=== PATIENT | male | born 1980 ===

== ENCOUNTER 2020-12-25 21:29 | Emergency (ER) | payer BC ==
[2020-12-25] MEDS ORDERED: Ketorolac 15 MG/ML SDV IM ONE (22:06)
[2020-12-25] MEDS ORDERED: Morphine 4 MG/ML Syringe IVPUSH ONE (22:18)
[2020-12-25 22:52] LABS: BLOOD UREA NITROGEN,BUN 19 mg/dL (7.0-18.0); CARBON DIOXIDE,CO2 26.8 mmol/L (21.0-32.0); CHLORIDE,CL 104 mmol/L (98-107); GLUCOSE RANDOM 115 mg/dL (74-106); POTASSIUM,K 4.2 mmol/L (3.5-5.1); SODIUM,NA 142 mmol/L (136-148)
[2020-12-25] MEDS ORDERED: Iopamidol 755 Mg/ML 100 ML Bottle IVPUSH ONE (23:15)
--- NOTE | 2020-12-26 00:58 | CT ---
INDICATION: Bloody stools. Mid back pain. CT ABDOMEN AND PELVIS WITH CONTRAST TECHNIQUE: Multidetector CT imaging was performed through the abdomen and pelvis following intravenous contrast administration using 100 mL Isovue 370. a delay in initiation of scanning occurred due to scanner malfunction. Coronal and sagittal reconstructions were generated. COMPARISON: None. FINDINGS: Lower chest: Lung bases are clear. Liver: Within normal limits. Gallbladder and bile ducts: No gallbladder wall thickening or calcified gallstones. No biliary dilation identified. Pancreas: Unremarkable. Spleen: Normal. Adrenals: No nodules or masses. Kidneys, ureters, and urinary bladder: No renal masses or hydronephrosis. No bladder mass or definite wall thickening. Gastrointestinal tract: Normal caliber small bowel without wall thickening or obstruction. The appendix is normal. There are multiple sigmoid colon diverticula without evidence of diverticulitis. No generalized colon wall thickening is seen to suggest colitis. Vascular structures: Normal for age. Peritoneum: No free air, abscess, or significant free fluid. Lymph nodes: No pathologically enlarged nodes identified. Reproductive organs: No pelvic masses. Bones: Minor spinal degenerative changes. IMPRESSION: 1. No acute abnormality identified. No definite cause for the patient`s symptoms is demonstrated. 2. Sigmoid colon diverticulosis without evidence of diverticulitis. SONA YEBOAH MD [facility] Dictated by Vern Yeboah MD @ 12/26/2020 12:56:55 AM Please note that all CT scans at this facility use dose modulation, iterative reconstruction, and/or weight-based dosing when appropriate to reduce radiation dose to as low as reasonably achievable. Dictated by: Vern Yeboah MD @ 12/26/2020 00:57:11 (Electronically Signed)
--- NOTE | 2020-12-26 01:00 | CT ---
INDICATION: Mid back pain. CT LUMBAR SPINE WITHOUT CONTRAST TECHNIQUE: Multidetector axial CT imaging was performed through the lumbar spine, without contrast. Sagittal and coronal reconstructions were generated. FINDINGS: No acute fractures are identified. Disc spaces appear preserved. Osseous alignment is within normal limits and no subluxation is seen. Mild degenerative change is seen at the L4-5 facet joints bilaterally. Paravertebral soft tissues are unremarkable. IMPRESSION: 1. No fracture, subluxation, or other acute finding identified. 2. Mild degenerative change at the L4-5 facet joints. SONA YEBOAH MD [facility] Please note that all CT scans at this facility use dose modulation, iterative reconstruction, and/or weight-based dosing when appropriate to reduce radiation dose to as low as reasonably achievable. Dictated by: Vern Yeboah MD @ 12/26/2020 00:59:09 (Electronically Signed)
[2020-12-26] MEDS ORDERED: Lidocaine 5% 700 MG Patch TRDERM ONE (01:45)
--- NOTE | 2020-12-26 01:57 | EDM.PDOC ---
ED HPI GENERAL MEDICAL PROBLEM - General Chief Complaint: Back Pain or Injury Stated Complaint: BACK PAIN, BLOOD IN STOOL Time Seen by Provider: 12/25/20 21:57 - History of Present Illness INITIAL COMMENTS - FREE TEXT/NARRATIVE: CHIEF COMPLAINT(S): Back pain HISTORY OF PRESENT ILLNESS: This is a 40-year-old man without any significant past medical history who presents to the emergency department with a chief complaint of back pain. The patient states that the last week he has been experiencing back pain in the lower part of his back. He denies any bowel incontinence, urinary incontinence, saddle anesthesia, fever, rash, IV drug use or any immunocompromise state. He states that the pain is achy and rates it as a 7 out of 10. He denies any exacerbating factor as he was working when this happened. He states that he does not usually lift things. He states that he was at the chiropractor however things seem to have worsened. He states that he has taken Aleve but that was only a couple of days ago. He states that in addition to this he did have some blood in his stool which was bright red. He denies any abdominal pain. Pain does not radiate and he does not have any numbness or tingling of his extremities. REVIEW OF SYSTEMS: Constitutional: Denies fever, chills. Eyes: Denies eye pain Ears, Nose, Mouth, & Throat: Denies earache Cardiovascular: Denies chest pain Respiratory: Denies shortness of breath Gastrointestinal: Positive for bright red blood in stool. Denies Nausea, vomiting, diarrhea, hematochezia. Genitourinary: Denies hematuria Skin:Denies a rash MSK: Positive for back pain Neurological: Denies blurred vision, numbness, , We did Psychiatric: Denies depression PAST MEDICAL HISTORY: As per history of present illness and as reviewed below otherwise noncontributory. SURGICAL HISTORY: As per history of present illness and as reviewed below otherwise noncontributory. SOCIAL HISTORY: As per history of present illness and as reviewed below otherwise noncontributory. FAMILY HISTORY: As per history of present illness and as reviewed below otherwise noncontributory. EXAMINATION OF ORGAN SYSTEMS/BODY AREAS: Constitutional: Blood pressure was 04[birth year]19/1979, heart rate 97, stores with an oxygen saturation of 95% on room air. Temperature 36.5 General: Well-appearing man who is in no acute distress Psychiatric: Appropriate mood and affect. Eyes: No scleral icterus or conjunctival erythema ENMT: Moist mucous membranes. No pharyngeal erythema Cardiovascular: Regular, rate, and rhythm. No gallops, murmurs, or rubs. Bilateral upper extremity pulses symmetric and intact. No peripheral edema. No JVD. Respiratory: Lungs clear to auscultation bilaterally. No wheezes, rales, or rhonchi. Gastrointestinal: Soft, non-tender, non-distended. Normoactive bowel sounds rec tobias exam performed with RN elevator runner in presence. There is a hemorrhoid along the 6:00 region near the anus without any bleeding which appears flat. Stool was brown but guaiac positive. rectal tone appropriate. No saddle anesthesia genitourinary: No suprapubic tenderness Musculoskeletal: Normal range of motion. Negative straight leg test. There is midline and lumbar tenderness. No overlying skin changes. Skin: No lesions or abrasions. Neurological: AOx4. Stregth 5/5 in bilateral upper and lower extremity. Sensation is intact bilaterally in upper and lower extremity. Gait appears norm al. MEDICAL DECISION MAKING AND COURSE IN THE ED WITH INTERPRETATION/REVIEW OF DIAGNOSTIC STUDIES: This is a 40-year-old man with past medical history who presents to the emergency department with 3 days of midline and paralumbar back pain who had a little. Given the back pain we will obtain a lumbar spine without contrast to evaluate any abnormality. The patient is low risk and does not have any red flag symptoms at this time. We will obtain labs including CBC CMP, type and screen and coags. Will obtain CT abdomen pelvis given the blood in the stool. I do believe the blood is more likely from the hemorrhoid and unlikely an acute GI bleed given that the patient is low risk. We will provide the patient with a lidocaine patch Toradol IM and 4 mg of IV morphine for pain relief. Laboratory: CBC reveals a leukocytosis of 13.33 otherwise unremarkable. INR is normal. CMP is normal. Covid is negative. The radiological images were viewed by myself along with reading the report from the radiologist. CT abdomen pelvis with contrast reveals no acute abnormalities. There is sigmoid diverticulosis without evidence of diverticulitis. CT lumbar spine does not reveal any acute fracture or subluxation. There is mild degenerative changes at the L4-5 facet joints. After labs and imaging I did discuss the results with the patient. At this time I do believe his back pain is likely musculoskeletal in nature and discussed treatment options with the patient. I discussed strict return precautions and also discussed treatment for his hemorrhoid. If he has any worsening of his symptoms he is to return. He did express understanding and was amenable to discharge at this time. DISPOSITION: The patient was discharged home in stable condition. The patient will follow up with primary care physician in 3 to 5 days CONDITION: Fair PROCEDURES: None FINAL IMPRESSION(S)/DIAGNOSES: 1. Acute lumbar strain 2. Acute bright red blood per rectum likely secondary to hemorrhoidal bleeding José Miguel Broussard M.D. Lower back Pain Score (Numeric/FACES): 7 - Related Data Allergies Allergy/AdvReac Type Severity Reaction Status Date / Time No Known Allergies Allergy Verified 12/25/20 21:52 Home Meds: Home Meds Lidocaine 5% [Lidoderm 5%] 1 patch TOP DAILY #7 patch 12/26/20 [Rx] methocarbamoL [Methocarbamol] 1,500 mg PO TID #42 tablet 12/26/20 [Rx] Past Medical History HEENT History: Reports: None Cardiovascular History: Reports: None Respiratory History: Reports: None Gastrointestinal History: Reports: None Genitourinary History: Reports: None Musculoskeletal History: Reports: Fracture, Other (See Below) Other Musculoskeletal History: fx of L wrist Neurological History: Reports: None Psychiatric History: Reports: None Endocrine/Metabolic History: Reports: Obesity/BMI 30+ Hematologic History: Reports: None Immunologic History: Reports: None Oncologic (Cancer) History: Reports: None Dermatologic History: Reports: None - Infectious Disease History Infectious Disease History: Reports: None - Past Surgical History Head Surgeries/Procedures: Reports: None Endocrine Surgical History: Reports: None Musculoskeletal Surgical History: Reports: None Social & Family History - Family History Family Medical History: No Pertinent Family History - Tobacco Use Tobacco Use Status *Q: Current Every Day Tobacco User Years of Tobacco use: 23 Packs/Tins Daily: 1 - Caffeine Use Caffeine Use: Reports: Coffee, Energy Drinks, Soda - Recreational Drug Use Recreational Drug Use: No ED ROS GENERAL - Review of Systems Review Of Systems: See Below ED EXAM, GENERAL - Physical Exam Exam: See Below Course - Vital Signs Last Recorded V/S: Last Vital Signs Temp 36.5 C 12/25/20 21:53 Pulse 79 12/26/20 01:17 Resp 17 12/26/20 01:17 BP 110/75 12/26/20 01:17 Pulse Ox 96 12/26/20 01:17 - Orders/Labs/Meds Labs: Laboratory Tests 12/25/20 12/25/20 12/25/20 Range/Units 22:25 22:25 22:25 WBC 13.33 H (4.0-11.0) K/uL RBC 4.87 (4.50-5.90) M/uL Hgb 14.8 (13.0-17.0) g/dL Hct 43.4 (38.0-50.0) % MCV 89.1 (80.0-98.0) fL MCH 30.4 (27.0-32.0) pg MCHC 34.1 (31.0-37.0) g/dL RDW Std Deviation 45.9 (28.0-62.0) fl RDW Coeff of Jeanne 14 (11.0-15.0) % Plt Count 298 (150-400) K/uL MPV 9.60 (7.40-12.00) fL Neut % (Auto) 52.6 (48.0-80.0) % Lymph % (Auto) 34.7 (16.0-40.0) % [place] % (Auto) 7.7 (0.0-15.0) % Eos % (Auto) 4.5 (0.0-7.0) % Baso % (Auto) 0.5 (0.0-1.5) % Neut # (Auto) 7.0 H (1.4-5.7) K/uL Lymph # (Auto) 4.6 H (0.6-2.4) K/uL [place] # (Auto) 1.0 H (0.0-0.8) K/uL Eos # (Auto) 0.6 (0.0-0.7) K/uL Baso # (Auto) 0.1 (0.0-0.1) K/uL Nucleated RBC % 0.0 /100WBC Nucleated RBCs # 0 K/uL INR 0.95 Sodium 142 (136-148) mmol/L Potassium 4.2 (3.5-5.1) mmol/L Chloride 104 (98-107) mmol/L Carbon Dioxide 26.8 (21.0-32.0) mmol/L BUN 19 H (7.0-18.0) mg/dL Creatinine 1.1 (0.8-1.3) mg/dL Est Cr Clr Drug Dosing TNP Estimated GFR (MDRD) > 60.0 ml/min Glucose 115 H (74-106) mg/dL Calcium 9.3 (8.5-10.1) mg/dL Total Bilirubin 0.3 (0.2-1.0) mg/dL AST 13 L (15-37) IU/L ALT 41 (14-63) IU/L Alkaline Phosphatase 66 (46-116) U/L Total Protein 8.0 (6.4-8.2) g/dL Albumin 4.1 (3.4-5.0) g/dL Globulin 3.9 (2.6-4.0) g/dL Albumin/Globulin Ratio 1.1 (0.9-1.6) SARS-CoV-2 RNA (EUGENIO) (NEGATIVE) Blood Type Antibody Screen 12/25/20 12/25/20 Range/Units 22:44 23:25 WBC (4.0-11.0) K/uL RBC (4.50-5.90) M/uL Hgb (13.0-17.0) g/dL Hct (38.0-50.0) % MCV (80.0-98.0) fL MCH (27.0-32.0) pg MCHC (31.0-37.0) g/dL RDW Std Deviation (28.0-62.0) fl RDW Coeff of Jeanne (11.0-15.0) % Plt Count (150-400) K/uL MPV (7.40-12.00) fL Neut % (Auto) (48.0-80.0) % Lymph % (Auto) (16.0-40.0) % [place] % (Auto) (0.0-15.0) % Eos % (Auto) (0.0-7.0) % Baso % (Auto) (0.0-1.5) % Neut # (Auto) (1.4-5.7) K/uL Lymph # (Auto) (0.6-2.4) K/uL [place] # (Auto) (0.0-0.8) K/uL Eos # (Auto) (0.0-0.7) K/uL Baso # (Auto) (0.0-0.1) K/uL Nucleated RBC % /100WBC Nucleated RBCs # K/uL INR Sodium (136-148) mmol/L Potassium (3.5-5.1) mmol/L Chloride (98-107) mmol/L Carbon Dioxide (21.0-32.0) mmol/L BUN (7.0-18.0) mg/dL Creatinine (0.8-1.3) mg/dL Est Cr Clr Drug Dosing Estimated GFR (MDRD) ml/min Glucose (74-106) mg/dL Calcium (8.5-10.1) mg/dL Total Bilirubin (0.2-1.0) mg/dL AST (15-37) IU/L ALT (14-63) IU/L Alkaline Phosphatase (46-116) U/L Total Protein (6.4-8.2) g/dL Albumin (3.4-5.0) g/dL Globulin (2.6-4.0) g/dL Albumin/Globulin Ratio (0.9-1.6) SARS-CoV-2 RNA (EUGENIO) NEGATIVE (NEGATIVE) Blood Type A POSITIVE Antibody Screen NEGATIVE Meds: Medications Discontinued Medications Generic Name Dose Route Start Last Admin Trade Name Freq PRN Reason Stop Dose Admin Iopamidol 100 ml 12/25/20 23:15 Iopamidol 755 Mg/Ml 100 Ml Bottle IVPUSH 12/25/20 23:16 ONETIME ONE Ketorolac Tromethamine 15 mg 12/25/20 22:06 12/25/20 22:36 Ketorolac 15 Mg/Ml Sdv IM 12/25/20 22:07 Not Given ONETIME ONE Lidocaine 700 mg 12/26/20 01:45 12/26/20 01:55 Lidocaine 5% 700 Mg Patch TRDERM 12/26/20 01:46 700 mg ONETIME ONE Administration Morphine Sulfate 4 mg 12/25/20 22:18 12/25/20 22:30 Morphine 4 Mg/Ml Syringe IVPUSH 12/25/20 22:19 4 mg ONETIME ONE Administration Departure - Departure Time of Disposition: 01:54 Disposition: Home, Self-Care 01 Condition: Fair Clinical Impression: Lumbar strain, Bleeding hemorrhoid - Discharge Information *PRESCRIPTION DRUG MONITORING PROGRAM REVIEWED*: No *COPY OF PRESCRIPTION DRUG MONITORING REPORT IN PATIENT RENETTA: No Prescriptions: Lidocaine 5% [Lidoderm 5%] 1 patch TOP DAILY #7 patch methocarbamoL [Methocarbamol] 1,500 mg PO TID #42 tablet Instructions: Hemorrhoids, Pain Medicine Instructions, [id number], Lumbar Strain Referrals: PCP,None [Primary Care Provider] - Forms: ED Department Discharge Additional Instructions: You were evaluated today on an emergent basis. At this time all of your work-up was negative. As discussed I would like you to use the lidocaine patch to the area that affects your back the most. Please alternate with ice and heating pad. Please do stretching as described. I did send you a muscle relaxer please take that 3 times a day. If you have any worsening symptoms such as worsening back pain, urinating on yourself, defecating on yourself, fever, or numbness when wiping after having a bowel movement please return to the emergency department. Otherwise please follow-up with primary care physician in 3 to 5 days. In addition you did have some bleeding from a hemorrhoid I believe as your stool was brown and your imaging was otherwise normal. If you have any worsening bleeding with your bowel movements please return to the emergency d epartment. Please use: Tylenol 500-1000mg every 6 hours (DO NOT TAKE MORE THAN 4000mg in 1 day) Ibuprofen 400mg every 6 hours (Take with food as it can cause ulcers, GI upset) Example schedule: 8:00 AM (Tylenol 500-1000mg) 11:00 AM (Ibuprofen 400mg) 2:00 PM (Tylenol 500-1000mg) 5:00 PM (Ibuprofen 400mg) In addition to Tylenol and Motrin you may use over the counter creams such as Vo ltaren Cream or Lidocaine Cream (Lidoderm) as needed 4 times a day for symptomatic relief. [facility] [address] [place] [id number] [address] [address] The patient is informed of any results of their evaluation and diagnostic workup and all questions are answered. They are given discharge instructions and return precautions. The patient is stable for discharge. The patient states they understand and agree with the plan and that they will return if their symptoms get worse or if they have any new concerns. The following information is given to patients seen in the emergency department who are being discharged to home. This information is to outline your options for follow-up care. We provide all patients seen in our emergency department with a follow-up referral. The need for follow-up, as well as the timing and circumstances, are variable depending upon the specifics of your emergency department visit. If you don't have a primary care physician on staff, we will provide you with a referral. We always advise you to contact your personal physician following an emergency department visit to inform them of the circumstance of the visit and for follow-up with them and/or the need for any referrals to a consulting specialist. The emergency department will also refer you to a specialist when appropriate. This referral assures that you have the opportunity for follow-up care with a specialist. All of these measure are taken in an effort to provide you with optimal care, which includes your follow-up. Under all circumstances we always encourage you to contact your private physician who remains a resource for coordinating your care. When calling for follow-up care, please make the office aware that this follow-up is from your recent emergency room visit. If for any reason you are refused follow-up, please contact the [facility] Emergency Department at and asked to speak to the emergency department charge nurse. Sepsis Event Note (ED) - Evaluation Sepsis Screening Result: No Definite Risk
== END 2020-12-26 02:10 | disposition home or self-care (01) ==
LOC: MW.ED 21:29
DX: S39.012A Strain of muscle, fascia and tendon of lower back, initial encounter (principal); K64.9 Unspecified hemorrhoids; K92.1 Melena; E66.9 Obesity, unspecified; Z68.30 Body mass index [BMI] 30.0-30.9, adult; Z72.0 Tobacco use; Z20.822 Contact with and (suspected) exposure to COVID-19; X58.XXXA Exposure to other specified factors, initial encounter; Y99.0 Civilian activity done for income or pay
CPT/HCPCS: 36415; 72131; 74177; 80053; 85025; 85610; 86850; 86900; 86901; 87635; 96374; 99284; A9270; J2270; U0002

== ENCOUNTER 2021-09-13 05:34 | Emergency (ER) | payer BC ==
[2021-09-13] MEDS ORDERED: Ibuprofen 600 MG Tab PO ONE (05:50)
== END 2021-09-13 06:38 | disposition home or self-care (01) ==
LOC: MW.ED 05:34
DX: M25.572 Pain in left ankle and joints of left foot (principal); E66.9 Obesity, unspecified; Z68.39 Body mass index [BMI] 39.0-39.9, adult
CPT/HCPCS: 73600; 99283; A9270